=== PATIENT | male | born 1950 | race Caucasian/White ===

== ENCOUNTER 2018-08-24 14:06 | Emergency (ER) | payer OTHER ==
[2018-08-24 14:13] VITALS: BP 145/91; TEMP 98.3; BMI 42.6
[2018-08-24] MEDS ORDERED: SODIUM CHLORIDE 1,000 ML IV STA (14:19)
[2018-08-24] MEDS ORDERED: TORADOL IVP STA (14:19)
[2018-08-24] MEDS ORDERED: ZOFRAN 4 MG/2 ML IVP STA (14:19)
--- NOTE | 2018-08-24 14:46 | ED.PDOC ---
General ED Provider: Dr. EDENILSON PAZ Chief Complaint: Kidney Stone Stated Complaint: Left sided back pain that started 1 hour ago better while at triage now 08/22. Prior history of kidney stone 10 years ago on the right. Had some nausea with it but no vomiting. Time Seen by Physician: 14:36 Mode of Arrival: Walk-In Information Source: Patient Exam Limitations: No limitations Primary Care Provider: ASIF SANCHEZ Nursing and Triage Documentation Reviewed and Agree: Yes Does patient meet sepsis criteria?: No If yes, has appropriate treatment been initiated?: No System Inflammatory Response Syndrome: Not Applicable Sepsis Protocol: For patient's 13 years and over: Temp is 96.8 and below OR 101 and greater Pulse >90 BPM Resp >20/minute Acutely Altered Mental Status Are patient's symptoms suggestive of a new infection, such as: -Pneumonia -Skin, Soft Tissue -Endocarditis -UTI -Bone, Joint Infection -Implantable Device -Acute Abdominal Infection -Wound Infection -Meningitis -Blood Stream Catheter Infection -Unknown Musculoskeletal Complaint Exam - Back Pain Complaint/Exam Mechanism of Injury: Reports: No known trauma Onset/Duration: 1 hour ago Symptoms Are: Still present Timing: Intermittent Initial Severity: Severe Current Severity: Mild Location: Reports: Discrete (right ) Character: Reports: Aching, Throbbing Aggravating: Reports: None Alleviating: Reports: None Associated Signs and Symptoms: Reports: Flank pain (left). Denies: Swelling, Redness, Bruising, Fever, Weakness, Numbness, Tingling, Abdominal pain, Bladder incontinence, Bowel incontinence, Weight loss, Pain with weight bearing Related History: Reports: Similar episode (with renal stones. ) TAD Risk Factors: Reports: None AAA Risk Factors: Reports: None Cauda Equina Risk Factors: Reports: None Epidural Abcess Risk Factors: Reports: None Related Surgical History: Reports: None Focal Tenderness: No Paraspinal Muscle Tenderness: No Paraspinal Muscle Spasm: No Scoliosis: No Lordosis: No Kyphosis: No SLR Test: Right Negative, Left Negative Hip Motion Testing Pain: Right Negative, Left Negative Focal Weakness: Present: None Focal Sensory Loss: Present: None Gait: Present: Normal Differential Diagnoses: Renal Colic, Strain, Sprain Review of Systems - Review Of Systems Constitutional: Reports: No symptoms Eyes: Reports: No symptoms Ears, Nose, Mouth, Throat: Reports: No symptoms Respiratory: Reports: No symptoms Cardiac: Reports: No symptoms GI: Reports: Nausea : Reports: No symptoms Musculoskeletal: Reports: Back pain Skin: Reports: No symptoms Neurological: Reports: No symptoms Endocrine: Reports: No symptoms Hematologic/Lymphatic: Reports: No symptoms All Other Systems: Reviewed and Negative Past Medical History - Past Medical History Endocrine: Reports: DM 2, Dyslipidemia Cardiovascular: Reports: Hypertension Respiratory: Reports: None Hematological: Reports: None Gastrointestinal: Reports: Liver Genitourinary: Reports: Kidney stones Neuro/Psych: Reports: None Musculoskeletal: Reports: None Cancer: Reports: None Other Pertinent Past Medical History: Obesity - Surgical History General Surgical History: Reports: Cholecystectomy, Tonsillectomy, Other (Nasal surgery ) - Family History Family History: Reports: Unknown - Social History Smoking Status: Never smoker Hx Substance Use: No Alcohol Screening: None Physical Exam - Physical Exam Appearance: Ill-appearing, Obese Ill-appearing: Mild Pain Distress: Mild Eyes: RANDALL, EOMI, Conjunctiva clear ENT: Ears normal, Nose normal, Oropharynx normal Neck: Supple Respiratory: Airway patent, Breath sounds clear, Breath sounds equal, Respirations nonlabored Cardiovascular: RRR, Pulses normal, No rub, No murmur GI/: Soft, Nontender, No masses, Bowel sounds normal, No Organomegaly Musculoskeletal: Normal strength, ROM intact, No edema, No calf tenderness Skin: Warm, Dry, Normal color Neurological: Sensation intact, Motor intact, Cranial nerves intact, Alert, Oriented Psychiatric: Affect appropriate, Mood appropriate Interpretation - Radiology Interpretation Radiology Interpretation By: Radiologist Radiology Results: Positive (3.5mm stone on the left distal Ureter) Exam Interpreted: CT Scan Critical Care Note - Critical Care Note Total Time (mins): 0 Course - Course Hematology/Chemistry: 08/24/18 14:35 08/24/18 14:35 Orders, Labs, Meds: Lab Review 08/24/18 08/24/18 08/24/18 14:33 14:35 14:35 WBC 8.45 RBC 5.74 Hgb 16.2 Hct 47.1 MCV 82.1 MCH 28.2 MCHC 34.4 RDW Coeff of Jt 12.1 Plt Count 234 Immature Gran % (Auto) 0.5 Neut % (Auto) 62.8 Lymph % (Auto) 25.1 [place] % (Auto) 8.4 Eos % (Auto) 2.6 Baso % (Auto) 0.6 Immature Gran # (Auto) 0.0 Neut # (Auto) 5.3 Lymph # (Auto) 2.1 [place] # (Auto) 0.7 Eos # (Auto) 0.2 Baso # (Auto) 0.1 Sodium 136.0 Potassium 4.15 Chloride 99.4 Carbon Dioxide 31.9 H Anion Gap 8.85 BUN 15.3 Creatinine 0.89 Estimated GFR (MDRD) 86.00 BUN/Creatinine Ratio 17.19 Glucose 192.3 H Calcium 9.24 Total Bilirubin 0.47 AST 55.0 ALT 60.0 H Alkaline Phosphatase 72.1 Total Protein 7.64 Albumin 4.17 Globulin 3.47 Albumin/Globulin Ratio 1.20 Amylase 128.7 H Lipase 361.8 H Urine Color Yellow Urine Clarity Slightly Urine pH 6.0 Ur Specific [place] 1.025 Urine Protein Negative Urine Glucose (UA) Negative Urine Ketones Negative Urine Blood 3+ Urine Nitrite Negative Urine Bilirubin Negative Urine Urobilinogen 0.2 Ur Leukocyte Esterase Negative Urine Microscopic RBC 20-30 Urine Microscopic WBC 0-2 Ur Squamous Epith Cells Not present Amorphous Sediment Trace Urine Bacteria Trace Urine Mucus 2+ Orders Category Date Time Status ED IV/MEDIPORT/POWERPORT .ONCE EMERGENCY 08/24/18 14:19 Active AMYLASE Stat LAB 08/24/18 14:35 Completed CBC W/ AUTO DIFF Stat LAB 08/24/18 14:35 Completed COMPREHENSIVE METABOLIC PANEL Stat LAB 08/24/18 14:35 Completed LIPASE Stat LAB 08/24/18 14:35 Completed URINALYSIS C & S IF INDICATED Stat LAB 08/24/18 14:33 Completed 0.9 % Sodium Chloride [Saline Flush] MEDS 08/24/18 14:19 Ordered 1 syr IVF PRN PRN Ketorolac Tromethamine [Toradol] MEDS 08/24/18 14:19 Discontinued 30 mg IVP ONCE STA Ondansetron HCl/Pf [Zofran 4 mg/2 ml] MEDS 08/24/18 14:19 Discontinued 4 mg IVP ONCE STA Sodium Chloride 0.9% [Sodium Chloride] 1,000 ml MEDS 08/24/18 14:19 Discontinued IV BOLUS Tamsulosin HCl [Flomax] MEDS 08/24/18 15:21 Discontinued 0.4 mg PO ONCE STA CT ABD/PEL WO RENAL STONE PROT Stat RADS 08/24/18 14:19 Completed Medications Generic Name Dose Route Start Last Admin Trade Name Freq PRN Reason Stop Dose Admin Sodium Chloride 1 syr 08/24/18 14:19 08/24/18 15:25 Saline Flush IVF 1 syr PRN PRN Administration To flush IV Discontinued Medications Generic Name Dose Route Start Last Admin Trade Name Benyq PRN Reason Stop Dose Admin Sodium Chloride 1,000 mls @ 1,000 mls/hr 08/24/18 14:19 08/24/18 15:25 Sodium Chloride IV 08/24/18 15:18 1,000 mls/hr BOLUS STA Administration Ketorolac Tromethamine 30 mg 08/24/18 14:19 08/24/18 15:27 Toradol IVP 08/24/18 14:20 30 mg ONCE STA Administration Ondansetron HCl 4 mg 08/24/18 14:19 08/24/18 15:26 Zofran 4 Mg/2 Ml IVP 08/24/18 14:20 4 mg ONCE STA Administration Tamsulosin HCl 0.4 mg 08/24/18 15:21 08/24/18 15:32 Flomax PO 08/24/18 15:22 0.4 mg ONCE STA Administration Vital Signs: Temp Pulse Resp BP Pulse Ox 08/24/18 14:07 98.3 F 81 20 145/91 H 94 L Departure - Departure Time of Disposition: 16:30 Disposition: HOME SELF-CARE Discharge Problem: Kidney stone Instructions: Kidney Stones (ED) Condition: Good Pt referred to PMD for follow-up: Yes IPMP verified?: No Additional Instructions: Take Medications as prescribed Follow up with PCP in 3 days Strain urine Prescriptions: Hydrocodone Bit/Acetaminophen [[place] Pool 5-325] 1 each PO Q6HR PRN #20 tablet PRN Reason: severe pain Tamsulosin HCl [Flomax] 0.4 mg PO DAILY #10 cap.er.24h Allergies/Adverse Reactions: Allergies No Known Allergies Allergy (Unverified 08/24/18 14:17) Home Medications: Ambulatory Orders Aspirin [Aspirin EC] 81 mg PO DAILY 06/29/15 Lisinopril [Zestril] 20 mg PO DAILY 06/29/15 Metoprolol Succinate [Toprol Xl] 25 mg PO BID 06/29/15 Atorvastatin Calcium [Lipitor] 20 mg PO DAILY 08/24/18 Hydrocodone Bit/Acetaminophen [[place] Pool 5-325] 1 each PO Q6HR PRN #20 tablet Liraglutide [Victoza 2-Dawit] 1.2 mg SQ DAILY 08/24/18 Losartan Potassium [Cozaar] 100 mg PO DAILY 08/24/18 Tamsulosin HCl [Flomax] 0.4 mg PO DAILY #10 cap.er.24h 08/24/18 Disposition Discussed With: Patient, Family
--- NOTE | 2018-08-24 14:56 | CT ---
EXAM: Noncontrast CT of the abdomen and pelvis HISTORY: Flank pain COMPARISON: None available TECHNIQUE: Axial noncontrast CT of the abdomen and pelvis with sagittal and coronal reformats. FINDINGS: A 3.5 mm calculus is seen within the distal aspect of the left ureter. No other evidence of urolithi asis is seen. No hydronephrosis or hydroureter is identified. Noncontrast technique limits evaluation of abdominal viscera. The gallbladder has been removed. The unenhanced liver, spleen, adrenals, right kidney and pancreas appear unremarkable. Left renal peripe lvic cysts are identified. Ingested material is seen in the stomach. No abnormal bowel dilation is seen. Diverticulosis is see n without evidence of diverticulitis. The appendix is not abnormally enlarged. Mild atherosclerotic calcifications are present. No free air or free fluid is identified. There is a tiny fat containing umbilical hernia. Degenerative changes of the lumbar spine are noted. IMPRESSION: 3.5 mm distal left ureteral calculus. No other evidence of urolithiasis. No hydronephrosis or hydro ureter. Left renal peripelvic cysts. Diverticulosis without evidence of diverticulitis. Status post cholecystectomy. Other chronic findings as described above.
[2018-08-24] MEDS ORDERED: FLOMAX PO STA (15:21)
== END 2018-08-24 16:30 | disposition home or self-care (01) ==
LOC: ED 14:06
DX: N20.0 Calculus of kidney (principal); E11.9 Type 2 diabetes mellitus without complications; E78.5 Hyperlipidemia, unspecified; I10 Essential (primary) hypertension; Z87.442 Personal history of urinary calculi; E66.9 Obesity, unspecified; Z79.899 Other long term (current) drug therapy
CPT/HCPCS: 36415; 74176; 80053; 81001; 82150; 83690; 85025; 96361; 96374; 96375; 99283

== ENCOUNTER 2018-08-30 10:24 | Outpatient (CLI) ==
--- NOTE | 2018-08-30 10:48 | DI ---
EXAM: KUB. History: Follow-up nephrolithiasis. Comparison: CT abdomen pelvis 08/24/2018 Findings: Nonspecific but nonobstructive bowel gas pattern. No free intraperitoneal air. Degenerat hank changes of the spine. A few small pelvic calcifications most of which appear to represent phlebo liths. 2 mm calculus in the region of the distal left ureter. Impression: 2 mm calculus in the region of the distal left ureter could represent phlebolith or dist al ureteral stone.
== END 2018-08-30 10:25 | disposition home or self-care (01) ==
LOC: RAD 10:24
PROVIDERS: ATTEND Family Medicine
DX: N20.1 Calculus of ureter (principal)